=== PATIENT | female | born 1980 | race Caucasian/White ===

== ENCOUNTER 2021-06-22 12:46 | Emergency (ER) | payer OTHER, SELFPAY ==
--- NOTE | ~2021-06-22 | XR_ITS ---
EXAMINATION: XR ankle LT min 3V DATE: 06/22/2021 13:09 INDICATION: Left ankle injury and pain. TECHNIQUE: 4 views of left ankle were obtained. COMPARISON: None. FINDINGS: Bone alignment is normal. There are chip fractures of the dorsal aspects of distal talus an d proximal navicular. Joint spaces are normal. IMPRESSION: 1. Chip fractures of the dorsal aspects of distal talus and proximal navicular. Reviewed, dictated and finalized at location A.
--- NOTE | 2021-06-22 12:53 | ED.LOWEXIN ---
HPI - Extremity Injury (Lower) General Chief Complaint: Extremity Injury, Lower Stated Complaint: Possible injury to left Ankle Time Seen by Provider: 06/22/21 12:53 Source: patient and RN notes reviewed History of Present Illness HPI Narrative: Patient is a 40-year-old female who presents the urgent care with complaints of left ankle injury. Patient states that she slipped down her carpeted stairs on Friday and has been taking Tylenol and ibuprofen for the pain. Patient has been walking on the foot. States that she has had some increased swelling over the last day or so. No other acute complaints or injuries. No acute distress noted. Patient read the plan of care. Some parts of this dictation were generated by voice recognition software and may contain typographical and/or grammatical inaccuracies. Related Data Home Medications Medication Instructions Recorded Confirmed phentermine 37.5 mg PO DAILY 06/22/21 06/22/21 Allergies Allergy/AdvReac Type Severity Reaction Status Date / Time cefadroxil [From [facility]] Allergy Rash Verified 06/22/21 13:05 Sulfa (Sulfonamide Allergy Rash Verified 06/22/21 13:05 Antibiotics) Review of Systems Review of Systems: CONSTITUTIONAL: Denies fever, chills, or sweats. EYES: Denies visual changes, redness, or discharge. ENT: Denies rhinorrhea, congestion, sore throat, or otalgia. CARDIOVASCULAR: Denies chest pain, palpitations, or edema. RESPIRATORY: Denies cough or dyspnea. GASTROINTESTINAL: Denies abdominal pain, nausea, vomiting, or diarrhea. GENITOURINARY: Denies dysuria or hematuria. SKIN: Denies rash or itching. MUSCULOSKELETAL: Reports of left ankle pain and swelling NEUROLOGIC: Denies headache, numbness, or weakness. All other systems reviewed are negative, except as documented in HPI. PMFSH Comments At the time of my signature, I reviewed and agree with the nursing past medical, surgical, social, and family history. There is no relevant family history pertinent to the patient complaint. Exam Narrative: GENERAL: This is a well-nourished, well-developed patient, in no apparent distress. HEAD: normocephalic, atraumatic. EYES: PERRL. Sclera clear/white. Vision is grossly intact. EARS: External ears normal NOSE: External nose normal with no obvious nasal discharge, nares without redness, no rhinorrhea. THROAT: Mucous membranes moist NECK: Neck supple CARDIOVASCULAR: Regular rate and rhythm without murmurs, gallops, or rubs. RESPIRATORY: Clear to auscultation. Breath sounds equal bilaterally. No wheezes, rales, or rhonchi. SKIN: warm, intact with no suspicious lesions or rash, good texture and turgor. NEURO: awake, alert, and oriented to person, place and time. There were no obvious focal neurologic abnormalities. EXTREMITIES: Mild edema noted to the anterior and medial aspect of the left ankle with mild ecchymosis. Range of motion limited due to pain. Positive strong left pedal pulse with capillary refill less than 2 seconds. Pain exacerbated on weightbearing. Course Vital Signs Vital signs: Vital Signs Temperature 99.2 F 06/22/21 12:55 Pulse Rate 95 06/22/21 12:55 Respiratory Rate 16 06/22/21 12:55 Blood Pressure 134/82 06/22/21 12:55 Pulse Oximetry 100 06/22/21 12:55 Temperature 99.2 F 06/22/21 12:55 Pulse Rate 95 06/22/21 12:55 Respiratory Rate 16 06/22/21 12:55 Blood Pressure 134/82 06/22/21 12:55 Pulse Oximetry 100 06/22/21 12:55 Reviewed Procedures Orthopedic Splinting/Casting Injury #1: OCL: posterior (Short leg) Pre-Procedure Neuro Vascular Exam: normal Post-Procedure Neuro Vascular Exam: normal Other Orthopedic Equipment: crutches Additional Comments: Posterior left short leg applied by java [email or web address] technical lead. Neurovascular exam within normal limits pre and post procedure. Patient tolerated well. Use of crutches demonstrated. MDM - Extremity Injury (Lower) [facility] Narrative Medical decisio
[2021-06-22 12:55] VITALS: BP 134/82; PULSE 95; RESP 16; TEMP 37.3; O2SAT 100
--- NOTE | 2021-06-22 13:09 | PC.NURSE ---
PT DECLINED ICE FOR COMFORT AND WHEELCHAIR TO RADIOLOGY
== END 2021-06-22 13:43 | disposition home or self-care (01) ==
PROVIDERS: Emergency Provider Nurse Practitioner Family
DX: S92.155A Nondisplaced avulsion fracture (chip fracture) of left talus, initial encounter for closed fracture (principal); S92.255A Nondisplaced fracture of navicular [scaphoid] of left foot, initial encounter for closed fracture; W10.9XXA Fall (on) (from) unspecified stairs and steps, initial encounter
CPT/HCPCS: 29515; 73610; 99214; G0463

== ENCOUNTER 2022-08-01 19:07 | Emergency (ER) | payer OTHER, SELFPAY ==
[2022-08-01 19:14] VITALS: BP 132/82; PULSE 92; RESP 16; TEMP 36.9; O2SAT 100
--- NOTE | 2022-08-01 19:15 | ED.WOUNDLAC ---
HPI - Wound/Laceration General Stated Complaint: Puncture Wound/Right Foot Time Seen by Provider: 08/01/22 19:15 Source: patient Mode of arrival: ambulatory Limitations: no limitations History of Present Illness HPI narrative: Ms. Morillo is a 41-year-old female patient presenting to the clinic today with complaints of a puncture wound to her right foot that occurred approximately 30 minutes prior to arrival. She reports that she stepped on a little metal stake that is used to prop up graveyard hollowing decorations. Last tetanus was approximately 7 years ago Related Data Home Medications Medication Instructions Recorded Confirmed phentermine 37.5 mg tablet 37.5 mg PO DAILY 06/22/21 06/22/21 Allergies Allergy/AdvReac Type Severity Reaction Status Date / Time cefadroxil [From [facility]ice[facility]] Allergy Rash Verified 08/01/22 19:52 Sulfa (Sulfonamide Allergy Rash Verified 08/01/22 19:52 Antibiotics) Review of Systems Review of Systems: Pertinent positives per HPI. Patient denies any fever, chills, rash, headache, visual changes, dizziness, cough, runny nose, sore throat, shortness of breath, chest pain, palpitations, nausea, vomiting, diarrhea, constipation, abdominal pain, or any urinary issues. PMFSH Comments At the time of my signature, I reviewed and agree with the nursing past medical, surgical, social, and family history. There is no relevant family history pertinent to the patient complaint. Exam Narrative: General: Well-developed, well nourished, in no apparent distress Head: Normocephalic, atraumatic. Cardio: Regular rate and rhythm, s1 and s2 normal, no murmur appreciated. Resp: Clear to auscultation bilaterally, no rhonchi, rales, wheezing or rubs. Integumentary: [place], warm, and dry, small puncture wound to the right medial midfoot-mild swelling and tenderness to palpation without erythema or discharge. Bleeding controlled Course Course Emergency Course: Portions of this record may have been created with voice recognition software. Level of Care: Express Care Visit Vital Signs Vital signs: Vital signs reviewed MDM - Wound/Laceration MDM Narrative Medical decision making narrative: At the time of visit patient is resting comfortably on the exam table. She has a puncture wound to the right foot. Supportive measures were discussed with the patient she voiced understanding of discharge instructions and agrees with the treatment plan. Tetanus shot up updated in the clinic today Differential Diagnosis Differential diagnosis: Likely other (Puncture wound) Discharge Plan Discharge Clinical Impression: Puncture wound of foot Patient Disposition: Home, Self-Care Condition: Stable Instructions: Antibiotic Form, Puncture Wound in the Foot (ED) Additional Instructions: Antibiotics is not recommended at this time. May apply antibiotic ointment to the affected area twice daily x 2 days- Triple antibiotic ointment Keep wound clean and dry- hibiclens (chlorahexadine) is recommended for cleaning. Tdap injection was given in the clinic today May take tylenol/motrin as needed for pain Watch for signs and symptoms of infection- follow up with your PCP or return to the clinic if you develop redness, swelling, purulent discharge, streaking, or worsening of pain. Prescriptions: No Action phentermine 37.5 mg Tablet 37.5 mg PO DAILY hydrocodone-acetaminophen 5-325 mg tablet 1 tablet PO Q6H PRN (Reason: pain) Qty: 20 0RF Follow-up/Referrals: PHYSICIAN NOT ON STAFF,NONSTAFF [Primary Care Provider] - Time of Disposition: 19:30 Quality NIHSS Nursing Documentation ED NIHSS nursing documentation: reviewed/agree
[2022-08-01] MEDS: TETANUS,DIPHTHERIA,AC PERTUSSIS ADULT (0.5 ML) BOOSTRIX IM (19:32)
== END 2022-08-01 19:55 | disposition home or self-care (01) ==
PROVIDERS: Emergency Provider Nurse Practitioner Family
DX: S91.331A Puncture wound without foreign body, right foot, initial encounter (principal); W22.8XXA Striking against or struck by other objects, initial encounter; Z23 Encounter for immunization
CPT/HCPCS: 90471; 90715; 99212; G0463